=== PATIENT | female | born 1945 | race Caucasian/White ===

== ENCOUNTER 2021-05-31 11:44 | Outpatient (REF) | payer MEDICARE, SELFPAY ==
[2021-05-31 11:54] VITALS: BP 188/86; PULSE 110; RESP 16; TEMP 36.9; O2SAT 97; BMI 27.4
== END 2021-05-31 11:45 | disposition home or self-care (01) ==
LOC: HO.MS 11:44
PROVIDERS: PCP Family Medicine; Visit Provider Ophthalmology
PROC: (CPT 66821; principal; 2021-05-31 12:50)
DX: H26.492 Other secondary cataract, left eye (principal); I10 Essential (primary) hypertension; J44.9 Chronic obstructive pulmonary disease, unspecified; E07.9 Disorder of thyroid, unspecified; Z79.899 Other long term (current) drug therapy; Z79.51 Long term (current) use of inhaled steroids; Z87.891 Personal history of nicotine dependence
CPT/HCPCS: 66821

== ENCOUNTER 2021-06-07 09:45 | Outpatient (REF) | payer MEDICARE, SELFPAY ==
[2021-06-07 10:02] VITALS: BP 192/80; PULSE 81; RESP 16; TEMP 36.7; O2SAT 94
[2021-06-07 11:12] VITALS: BMI 27.2
--- NOTE | 2021-06-07 14:05 | PC.NURSE ---
IOP IN RIGHT EYE AT 1304 WAS 31. A DOSE OF IOPIDINE WAS ADMINISTERED. RECHECK OF IOP IN RIGHT EYE @ [address] OSEI NOTIFIED. IOP RECHECKED BY DR OSEI WITH RESULTING IOP OF 32. ANOTHER DOSE OF IOPIDINE ADMINISTERED AND PT WAS TAKEN TO DR FERNANDEZ OFFICE WITH HIM TO RECHECK IOP IN HIS MACHINE
== END 2021-06-07 09:46 | disposition home or self-care (01) ==
LOC: HO.MS 09:45
PROVIDERS: PCP Family Medicine; Visit Provider Ophthalmology
PROC: (CPT 66821; principal; 2021-06-07 13:20)
DX: H26.491 Other secondary cataract, right eye (principal); I10 Essential (primary) hypertension; J44.9 Chronic obstructive pulmonary disease, unspecified; Z79.51 Long term (current) use of inhaled steroids; Z79.899 Other long term (current) drug therapy; Z87.891 Personal history of nicotine dependence
CPT/HCPCS: 66821